=== PATIENT | female | born 1990 ===

== ENCOUNTER 2018-01-10 09:58 | Inpatient (IN) | payer OTHER ==
[~2018-01-10] VITALS: Ht 149.9 cm; Wt 96.6 kg
[~2018-01-10 09:58] MED LIST: PRENATAL + DHA1 EAC1; PROGESTERONE200 MG
[2018-01-17] MEDS ORDERED: PRENATAL TABLE1 EAC3 PO (16:13)
[2018-01-17] MEDS ORDERED: IRON325 MG PO (16:14)
== END 2018-01-19 16:48 | disposition home or self-care (01) | DRG 775 ==
LOC: LDR 01-17 06:11 → OB/GYN 01-17 19:31
PROC: 10E0XZZ Delivery of Products of Conception, External Approach (ICD-10-PCS; principal; 2018-01-17)
PROC: 0HQ9XZZ Repair Perineum Skin, External Approach (ICD-10-PCS; 2018-01-17)
PROC: 10907ZC Drainage of Amniotic Fluid, Therapeutic from Products of Conception, Via Natural or Artificial Opening (ICD-10-PCS; 2018-01-17)
PROC: 3E033VJ Introduction of Other Hormone into Peripheral Vein, Percutaneous Approach (ICD-10-PCS; 2018-01-17)
PROC: 4A1HXCZ Monitoring of Products of Conception, Cardiac Rate, External Approach (ICD-10-PCS; 2018-01-17)
DX: O70.0 First degree perineal laceration during delivery (principal); O99.824 Streptococcus B carrier state complicating childbirth; Z3A.39 39 weeks gestation of pregnancy; Z37.0 Single live birth

== ENCOUNTER 2021-06-02 06:00 | Inpatient (IN) | payer OTHER ==
[~2021-06-02] VITALS: Ht 149.9 cm; Wt 4.5 kg
[~2021-06-02 06:00] MED LIST changes: +AMOXICILLIN500 MG PO; +IRON325 MG PO; +PRENA1 TRUE CO1 EACH PO; +PRENATAL TABLE1 EAC3 PO
== END 2021-06-05 10:30 | disposition home or self-care (01) | DRG 788 ==
LOC: O/R 06:00 → SURH 07:00 → OB/GYN 15:34
PROVIDERS: ADMIT Specialist; ATTEND Specialist
PROC: 4A1HXFZ Monitoring of Products of Conception, Cardiac Rhythm, External Approach (ICD-10-PCS; 2021-06-02)
PROC: 10D00Z1 Extraction of Products of Conception, Low, Open Approach (ICD-10-PCS; principal; 2021-06-02 07:00)
DX: O32.2XX0 Maternal care for transverse and oblique lie, not applicable or unspecified (principal); O99.824 Streptococcus B carrier state complicating childbirth; Z3A.39 39 weeks gestation of pregnancy; Z37.0 Single live birth